=== PATIENT | male | born 1960 | race Two or more races ===

== ENCOUNTER 2019-06-14 17:52 | Emergency (ER) | payer BC ==
[~2019-06-14] VITALS: Ht 188 cm; Wt 136.1 kg
[2019-06-14 18:22] LABS: Hematocrit 45.5 % (41.0-53.0); Mean Corpuscular Hemoglobin 32.8 pg (28.0-32.0); White Blood Cell 9.2 10^3/uL (4.4-10.8)
[2019-06-14 18:28] LABS: Basophils # (auto) 0.1 uL; Basophils % (auto) 0.7 % (0.0-2.0); Eosinophils # (auto) 0.2 uL; Eosinophils % (auto) 1.9 % (0.0-7.0); Hemoglobin 16.1 g/dL (13.5-17.5); Lymphocytes # (auto) 4.2 uL; Lymphocytes % (auto) 45.6 % (10.0-50.0); Mean Corpuscular Hgb Conc. 35.4 g/dL (32.0-36.0); Mean Corpuscular Volume 92.6 fL (80.0-100.0); Monocytes # (auto) 0.7 uL; Monocytes % (auto) 7.4 % (0.0-12.0); Neutrophils # (auto) 4.1 uL; Neutrophils % (auto) 44.4 % (37.0-80.0); Nucleated Red Blood Cells % 0.1 %; Platelet Count (auto) 204 10^3/uL (140-450); Red Blood Cells 4.92 10^6/uL (4.5-5.90); Red Cell Distribution Width 13.6 % (11.8-14.3)
[2019-06-14 19:13] LABS: Anion Gap 4 (5-15); Blood Urea Nitrogen 17 mg/dL (7-18); Carbon Dioxide 27 mmol/L (21-32); Chloride 109 mmol/L (98-107); Glucose 100 mg/dL (74-106); Potassium 3.8 mmol/L (3.5-5.1); Sodium 140 mmol/L (136-145)
[2019-06-14 19:15] LABS: BUN/Creatinine Ratio 18.7; GFR African American 111 mL/min; GFR Non-African American 92 mL/min
[2019-06-14 19:20] LABS: Alkaline Phosphatase 110 U/L (45-117); Aspartate Aminotransferase 36 U/L (15-37); Bilirubin, Total 0.3 mg/dL (0.2-1.0); Total Protein 7.7 g/dL (6.4-8.2)
[2019-06-14 19:47] VITALS: BP 110/67
[2019-06-14] MEDS ORDERED: THIAMINE INJ 100 MG in SODIUM CHLORIDE 0.9% 1,000 ML IV ONE (20:00)
[2019-06-14 20:02] LABS: Alanine Aminotransferase 54 U/L (16-61)
[2019-06-14 20:44] LABS: Amylase 25 U/L (25-115); Lipase 147 U/L (73-393)
== END 2019-06-14 21:12 | disposition left against medical advice (07) ==
LOC: EDBD 17:52 → ER 17:52
DX: K70.30 Alcoholic cirrhosis of liver without ascites (principal); F10.129 Alcohol abuse with intoxication, unspecified; Y90.8 Blood alcohol level of 240 mg/100 ml or more
CPT/HCPCS: 36415; 71045; 80053; 80320; 82150; 83690; 84484; 85025; 93005; 99284; J7030